=== PATIENT | male | born 1980 | race Caucasian/White ===

== ENCOUNTER 2017-08-29 17:35 | Emergency (ER) | payer OTHER ==
[2017-08-29] MEDS: ONDANSETRON PF 4 MG/2 ML VIAL. IV (18:12)
[2017-08-29] MEDS: fentaNYL PF VIAL 100 MCG/2 ML VIAL IV ×3 (18:13→22:32)
[2017-08-29] MEDS ORDERED: fentaNYL PF VIAL 100 MCG/2 ML VIAL IV ×2 (18:45→22:30)
[2017-08-29] MEDS ORDERED: ONDANSETRON PF 4 MG/2 ML VIAL. IV ×2 (18:45→22:30)
[2017-08-29] MEDS: HYDROmorphone 2 MG/ML VIAL IV ×2 (19:37→20:14)
[2017-08-29] MEDS ORDERED: fentaNYL PF VIAL 100 MCG/2 ML VIAL ×2 (19:57→22:19)
[2017-08-29] MEDS ORDERED: MIDAZOLAM HCL/PF 2 MG/2 ML VIAL. (19:57)
[2017-08-29] MEDS ORDERED: SEVOFLURANE 61 TO 120 MINUTES. IH (19:58)
[2017-08-29] MEDS ORDERED: DEXAMETHASONE SOD PHOS 20 MG/5 ML VIAL. (19:58)
[2017-08-29] MEDS ORDERED: LIDOCAINE 2% PF Vial for OR 5 ML VIAL. (19:58)
[2017-08-29] MEDS ORDERED: PROPOFOL 0 ML IV (19:58)
[2017-08-29] MEDS ORDERED: ONDANSETRON PF 4 MG/2 ML VIAL. (19:58)
[2017-08-29] MEDS ORDERED: ceFAZolin 2GM PREMIX 2 GM/50 ML BAG IV (21:00)
[2017-08-29] MEDS ORDERED: PROPOFOL 20 ML IV (21:47)
[2017-08-29] MEDS: BUPIVACAINE-EPI 0.25%-1:200000 50 ML VIAL. (21:50)
[2017-08-29] MEDS ORDERED: PROCHLORPERAZINE 10 MG/2 ML VIAL. IV (22:30)
[2017-08-29] MEDS ORDERED: IV RINGERS,LACTATED 1000ML 1,000 ML IV (22:30)
[2017-08-29] MEDS ORDERED: LIDOCAINE 1% PF 2 ML VIAL. ID (22:30)
[2017-08-29] MEDS: oxyCODONE/APAP 5/325 1 TAB TABLET PO (22:47)
== END 2017-08-29 20:41 | disposition other institution (70) ==
LOC: ER 17:35 → 4 NORTH 18:30 → ER 20:41
DX: S80.252A Superficial foreign body, left knee, initial encounter (principal); Z88.5 Allergy status to narcotic agent; Z88.8 Allergy status to other drugs, medicaments and biological substances; Z91.018 Allergy to other foods; W45.8XXA Other foreign body or object entering through skin, initial encounter; Y93.89 Activity, other specified; Y99.8 Other external cause status; Y92.89 Other specified places as the place of occurrence of the external cause
CPT/HCPCS: 29874; 73502; 73562; 73610; 96365; 96375; 96376; 99285-25; A7015; J0690; J1100; J1170; J2001; J2250; J2405; J2704; J3010